=== PATIENT | male | born 1990 | race Hispanic/Latino ===

== ENCOUNTER 2018-03-13 02:32 | Emergency (ER) | payer OTHER ==
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
[2018-03-13] MEDS ORDERED: Morphine 4 MG/ML VIAL ONE (03:08)
[2018-03-13] MEDS ORDERED: Lidocaine 1% w Epi 1:100,000 Inj ONE (03:43)
[2018-03-13 07:00] VITALS: BP 119/70; PULSE 84; RESP 16; TEMP 98.7; O2SAT 97
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
== END 2018-03-13 07:30 | disposition home or self-care (01) ==
LOC: H.ER 02:32
DX: S52.501A Unspecified fracture of the lower end of right radius, initial encounter for closed fracture (principal); S01.511A Laceration without foreign body of lip, initial encounter; Y04.0XXA Assault by unarmed brawl or fight, initial encounter; Y92.89 Other specified places as the place of occurrence of the external cause; F11.10 Opioid abuse, uncomplicated
CPT/HCPCS: 12011; 29125; 73070; 96374; 99285; J2270

== ENCOUNTER 2018-03-17 12:44 | Emergency (ER) | payer OTHER ==
[2018-03-17 13:04] VITALS: BP 116/76; PULSE 65; RESP 16; TEMP 99; O2SAT 98
[2018-03-17] MEDS ORDERED: Lidocaine 2% w Epi 1:100,000 Inj IJ STA (13:33)
--- NOTE | 2018-03-17 13:35 | ED PDOC ---
HPI: Wound Care - HPI Time Seen by Provider: 03/17/18 12:48 Chief Complaint (Nursing): Suture/Staple Removal Chief Complaint (Provider): suture removal - 5 days, left face History Per: Patient History Of Present Illness: No fever/chills. no drainage from the site. Exam Limitations: no limitations Onset/Duration Of Symptoms: Days Severity: None Additional Complaint(s): 27 yo male with no medical problems returns to ER for suture removal of the left face. Pt has splint intact, left elbow. Radial head fracture 5 days ago. Pt states he did not see orthopedics yet and does not plan on seeing them. PT states he is going on vacation to [facility] tomorrow and planning on taking splint off. Discussed importance fo f/u with orthopedics and keeping spling on. Past Medical History Reviewed: Historical Data, Nursing Documentation, Vital Signs Vital Signs: Last Vital Signs Temp 99.0 F 03/17/18 13:02 Pulse 65 03/17/18 13:02 Resp 16 03/17/18 13:02 BP 116/76 03/17/18 13:02 Pulse Ox 98 03/17/18 13:02 - Medical History PMH: No Chronic Diseases - Surgical History Surgical History: No Surg Hx - Family History Family History: States: Unknown Family Hx - Living Arrangements Living Arrangements: With Family - Home Medications Home Medications: Ambulatory Orders Medication Instructions Recorded Ibuprofen [Motrin Tab] 600 mg PO Q6 #30 tab 03/13/18 traMADol [Ultram] 50 mg PO TID #12 tab 03/13/18 - Allergies Allergies/Adverse Reactions: Allergies Allergy/AdvReac Type Severity Reaction Status Date / Time No Known Allergies Allergy Verified 03/17/18 13:00 Review of Systems ROS Statement: Except As Marked, All Systems Reviewed And Found Negative Constitutional: Negative for: Fever, Chills Skin: Positive for: Other Physical Exam - Reviewed Nursing Documentation Reviewed: Yes Vital Signs Reviewed: Yes - Physical Exam Appears: Positive for: Well, Non-toxic, No Acute Distress Head Exam: Positive for: ATRAUMATIC, NORMAL INSPECTION, NORMOCEPHALIC Skin: Positive for: Warm. Negative for: Normal Color ((+) well healing laceration, left face with 2 sutures intact. No erythema, no drainage ) Eye Exam: Positive for: Normal appearance ENT: Positive for: Normal ENT Inspection Neck: Positive for: Normal Back: Positive for: Normal Inspection Extremity: Positive for: Normal ROM Neurologic/Psych: Positive for: Alert - ECG O2 Sat by Pulse Oximetry: 98 Medical Decision Making Medical Decision Makin sutures easily removed with suture removal kit and #11 blade. WEll- tolerated. No complications. Disposition - Clinical Impression Clinical Impression: Removal of suture - Patient ED Disposition Is Patient to be Admitted: No Counseled Patient/Family Regarding: Diagnosis, Need For Followup - Disposition Disposition: Routine/Home Disposition Time: 13:40 Condition: GOOD Instructions: Stitches Removal
== END 2018-03-17 13:47 | disposition home or self-care (01) ==
LOC: H.ER 12:44
DX: Z48.02 Encounter for removal of sutures (principal)

== ENCOUNTER 2018-03-27 15:58 | Emergency (ER) | payer SELFPAY ==
[2018-03-27 16:16] VITALS: BP 111/79; PULSE 78; RESP 19; TEMP 98.2; O2SAT 98
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
== END 2018-03-27 17:30 | disposition home or self-care (01) ==
LOC: H.ER 15:58
DX: M25.522 Pain in left elbow (principal)